=== PATIENT | male | born 1980 | race Two or more races ===

== ENCOUNTER 2022-04-13 11:07 | Emergency (ER) | payer OTHER ==
[~2022-04-13] VITALS: Ht 177.8 cm; Wt 100.0 kg
[2022-04-13 11:30] VITALS: BP 152/104
[2022-04-13] MEDS ORDERED: KETOROLAC TROMETH 60MG/2ML VIAL IM ONE (13:45)
[2022-04-13] MEDS ORDERED: methylPREDNISolone SOD SUCC 125 MG/2 ML VL IM ONE (13:45)
[2022-04-13] MEDS ORDERED: INDO50SU RE (13:49)
[2022-04-13] MEDS ORDERED: COLC1CAP PO (13:49)
[2022-04-13] MEDS ORDERED: METH4PAK PO (13:49)
[2022-04-13] MEDS ORDERED: LIDOCAINE 1% HCL (LOCAL ANESTH.) INJ 20ML MDV ONE (13:52)
== END 2022-04-13 14:16 | disposition home or self-care (01) ==
LOC: ER 11:07
DX: M10.9 Gout, unspecified (principal); J20.9 Acute bronchitis, unspecified; F17.210 Nicotine dependence, cigarettes, uncomplicated
CPT/HCPCS: 96372; 99284; J1885; J2001; J2930